=== PATIENT | male | born 1990 | race African-American/Black ===

== ENCOUNTER 2017-10-03 20:51 | Emergency (ER) | payer SELFPAY ==
[2017-10-03 22:01] LABS: #Basophils 0.1 thou/uL (0.0-0.2); #Eosinphils 0.2 thou/uL (0.0-0.7); #Lymphocytes 2.8 thou/uL (1.20-3.40); #Monocytes 0.5 thou/uL (0.11-0.59); #Neutrophils 5.4 thou/uL (1.40-6.50); %Basophils 0.6 % (0.0-1.0); %Eosinophils 1.7 % (0.0-10.0); %Lymphocytes 31.1 % (21.0-51.0); %Monocytes 5.6 % (0.0-10.0); Hematocrit 40.8 % (42.0-52.0); Mean Platelet Volume 8.6 fL (7.4-10.4); Red Blood Cell (RBC) Count 4.08 mill/uL (4.70-6.10); White Blood Cell (WBC) Count 8.9 thou/uL (4.8-10.8)
--- NOTE | 2017-10-03 22:06 | RAD ---
CHEST TWO VIEWS 10/03/17 HISTORY: Chest pain. COMPARISON: 04/03/14 FINDINGS: The cardiac silhouette and pulmonary vasculature are unremarkable. Mediastinum is midline. There is n o confluent air space consolidation, pneumothorax or pleural fluid evident. IMPRESSION: No active cardiopulmonary abnormalities are demonstrated. POS: [facility]
[2017-10-03 22:25] LABS: Troponin I 0.016 ng/mL (< 0.028)
[2017-10-03 22:38] LABS: ALT (SGPT) 11 U/L (8-55); AST (SGOT) 17 U/L (5-34); Alkaline Phosphatase 60 U/L (40-150); Anion Gap 13 mmol/L (10-20); BUN (Urea Nitrogen) 14 mg/dL (8.9-20.6); Bilirubin, Total 0.2 mg/dL (0.2-1.2); CK (CPK) 208 U/L (30-200); Calc. Creatinine Clearance 0 mL/min (70-130); Calcium 9.6 mg/dL (7.8-10.44); Carbon Dioxide 28 mmol/L (22-29); Chloride 106 mmol/L (98-107); Estimated GFR-MDRD Greater than 90; Globulin 3.3 g/dL (2.4-3.5); Protein, Total 7.9 g/dL (6.0-8.3)
== END 2017-10-03 22:56 | disposition left against medical advice (07) ==
LOC: ERS 20:51
DX: Z53.21 Procedure and treatment not carried out due to patient leaving prior to being seen by health care provider (principal)
CPT/HCPCS: 36415; 71020; 80053; 82550; 82553; 84484; 85025; 93005

== ENCOUNTER 2018-01-21 16:29 | Emergency (ER) | payer SELFPAY ==
--- NOTE | 2018-01-21 18:21 | RAD ---
PA AND LATERAL VIEWS CHEST: 01/21/18 HISTORY: Chest pain. FINDINGS: Comparison is made with the exam of 10/03/17. The heart size is normal. The lungs are expanded and clear. The bony thorax is normal. IMPRESSION: No acute process. POS: [facility]
--- NOTE | 2018-02-14 00:24 | EKG ---
Test Reason : CHEST PAIN Blood Pressure : / mmHG Vent. Rate : 067 BPM Atrial Rate : 067 BPM P-R Int : 190 ms QRS Dur : 088 ms QT Int : 352 ms P-R-T Axes : 044 063 047 degrees QTc Int : 371 ms Normal sinus rhythm with sinus arrhythmia Normal ECG Confirmed by WILLI SMALL ([id number]), film editor supervisor KERRIE LUIS ([id number] on 02/14/2018 12:24:06 AM Referred By: Confirmed By:WILLI SMALL
== END 2018-01-21 19:35 | disposition home or self-care (01) ==
LOC: ERS 16:29
DX: F41.9 Anxiety disorder, unspecified (principal); R07.89 Other chest pain; I10 Essential (primary) hypertension; F17.210 Nicotine dependence, cigarettes, uncomplicated; Z71.6 Tobacco abuse counseling
CPT/HCPCS: 71046; 93005; 99406

== ENCOUNTER 2019-02-07 23:32 | Emergency (ER) | payer SELFPAY | END 2019-02-07 23:56 | disposition home or self-care (01) | LOC: ERS 23:32 | DX: L20.9 Atopic dermatitis, unspecified (principal); I10 Essential (primary) hypertension; F17.210 Nicotine dependence, cigarettes, uncomplicated | CPT/HCPCS: 99282 ==